=== PATIENT | female | born 2005 | race Hispanic/Latino ===

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

== ENCOUNTER 2025-04-05 21:16 | Emergency (ER) | payer SELFPAY ==
[~2025-04-05] VITALS: Ht 157.5 cm; Wt 77.1 kg
--- NOTE | 2025-04-05 21:19 | NUR ---
UA CUP PROVIDED
[2025-04-05] MEDS ORDERED: ALBUTEROL 0.042% 1.25MG/3ML IH ONE (21:30)
[2025-04-05] MEDS: MAGNESIUM 2GM PREMIX 50ML 50 ML IV SCH (21:45)
[2025-04-05 22:00] VITALS: PULSE 87; RESP 20
[2025-04-05 22:13] LABS: IMMATURE GRANULOCYTE ABSOLUTE 0.02 K/uL (0-1); NUCLEATED RED BLOOD CELLS 0.0 % (0.0-0.19); PLATELET COUNT (AUTO) 292 K/uL (130-400); RED BLOOD CELL COUNT(AUTO) 3.99 MIL/uL (4.00-5.50); RED CELL DISTRIBUTION WIDTH 12.8 % (11.0-15.5); WHITE BLOOD COUNT (AUTO) 5.0 K/uL (4.8-10.8)
[2025-04-05 22:17] LABS: RAPID GROUP A STREP negative (NEGATIVE)
[2025-04-05 22:21] LABS: SARS-CoV-2, RNA, NAAT NEGATIVE SARS CoV-2 (NEGATIVE)
[2025-04-05 22:27] LABS: INFLUENZA TYPE A Negative For Type A (NEGATIVE); INFLUENZA TYPE B Negative For Type B (NEGATIVE)
[2025-04-05 22:36] LABS: CREATININE 0.6 mg/dL (0.5-1.0); GLOMERULAR FILTR. RATE CALC 133.0 mL/min (>90); GLUCOSE,RANDOM 96.0 mg/dL (70-105); SODIUM SERUM 140.0 mmol/L (136-145); UREA NITROGEN, BLOOD 8.0 mg/dL (7-18)
[2025-04-05] MEDS ORDERED: SODI3VIA16 IH (22:47)
[2025-04-05] MEDS ORDERED: BENZ-39 PO (22:47)
[2025-04-05] MEDS ORDERED: GUAI120015 PO (22:47)
--- NOTE | 2025-04-05 22:49 | ERN ---
General Chief Complaint: Adult-Asthma Stated Complaint: COUGH, VOMITING Time Seen by MD: 21:24 History of Present Illness Initial Comments 19-year-old female history of asthma here for evaluation of cough and congestion. Patient states that she has been using her rescue inhaler at home with minimal relief of symptoms. She comes today because of worsening cough and congestion. No fever. No vomiting or diarrhea. No abdominal pain. Allergies: Coded Allergies: No Known Drug Allergies (Unverified Allergy, Unknown, 05/25/19) Past Medical History Past Medical History: Asthma Past Surgical History: None EENTM: (+) nose congestion Respiratory: (+) cough Review of Systems: was completed, & the rest were negative. Physical Exam General Appearance: (+) no apparent distress Orientation: (+) alert, (+) oriented x 3 Eye: bilateral eye normal inspection, bilateral eye PERRL, bilateral eye EOMI Ear, Nose, Throat: (+) hearing grossly normal, (+) normal ENT inspection, (+) moist mucous membraine Neck: (+) normal inspection, (+) supple Respiratory: (+) chest non-tender, (+) wheezing Heart: (+) regular; (-) murmur Gastrointestinal: (+) soft, (+) non-tender Neurologic/Psychiatric: (+) normal speech, (+) no motor defecits Results Laboratory and Microbiology Lab and Micro Result Laboratory Tests Test 04/05/25 21:21 04/05/25 21:34 04/05/25 21:35 Urine HCG, Qualitative NEGATIVE (NEGATIVE) White Blood Count 5.0 K/uL (4.8-10.8) Red Blood Count 3.99 MIL/uL (4.00-5.50) L Hemoglobin 11.0 g/dL (12.0-16.0) L Hematocrit 33.2 % (36-48) L Mean Corpuscular Volume 83.2 fL (80-100) Mean Corpuscular Hemoglobin 27.6 pg (27.0-33.0) Mean Corpuscular Hemoglobin Concent 33.1 g/dL (32.0-36.0) Red Cell Distribution Width 12.8 % (11.0-15.5) Platelet Count 292 K/uL (130-400) Mean Platelet Volume 9.1 fL (7.5-10.5) Immature Granulocyte % (Auto) 0.4 % (0-1) Neutrophils (%) (Auto) 41.7 % (40.0-77.0) Lymphocytes (%) (Auto) 42.5 % (21.0-51.0) Monocytes (%) (Auto) 10.4 % (3.0-13.0) Eosinophils (%) (Auto) 4.6 % (0.0-8.0) Basophils (%) (Auto) 0.4 % (0.0-5.0) Neutrophils # (Auto) 2.1 K/uL (1.8-7.7) Lymphocytes # (Auto) 2.1 K/uL (1.0-4.8) Monocytes # (Auto) 0.5 K/uL (0.1-1.0) Eosinophils # (Auto) 0.23 K/uL (0.00-0.70) Basophils # (Auto) 0.02 K/uL (0.00-0.20) Absolute Immature Granulocyte (auto 0.02 K/uL (0-1) Nucleated Red Blood Cells 0.0 % (0.0-0.19) Sodium Level 140 mmol/L (136-145) Potassium Level 3.2 mmol/L (3.5-5.1) L Chloride Level 103 mmol/L (101-111) Carbon Dioxide Level 25 mmol/L (21-32) Blood Urea Nitrogen 8 mg/dL (7-18) Creatinine 0.6 mg/dL (0.5-1.0) Glomerular Filtration Rate Calc 133 mL/min (>90) Random Glucose 96 mg/dL (70-105) Lactic Acid Level 1.7 mmol/L (0.8-2.5) Total Calcium 8.6 mg/dL (8.5-10.1) Magnesium Level 1.80 mg/dL (1.80-2.40) Influenza Type A Antigen Negative For Type A Influenza Type B Antigen Negative For Type B SARS-CoV-2, RNA, NAAT NEGATIVE SARS CoV-2 Group A Streptococcus Rapid negative (NEGATIVE) MDM 19-year-old female here for evaluation of cough congestion. Mild wheezes on examination. We will give her a neb treatment, magnesium and reassess. Likely discharge home. ED Course Orders Procedure Category Date Status Time ,Urine Test LAB 04/05/25 Complete 21:22 Covid Rna Naat LAB 04/05/25 Complete 21:24 Influenza Type A & B, LAB 04/05/25 Complete Rapid 21:24 Rapid (Group A Strep) LAB 04/05/25 Complete 21:24 Magnesium LAB 04/05/25 Complete 21:24 Lactic Acid LAB 04/05/25 Complete 21:24 Cbc With Differential LAB 04/05/25 Complete 21:24 Basic Metabolic Panel LAB 04/05/25 Complete 21:24 Chest 1vw RAD 04/05/25 Taken 21:24 Albuterol 0.042% PHA 04/05/25 Complete 1.25mg/3ml (Proventil 21:30 Magnesium 2gm Premix PHA 04/05/25 In Process 50ml (Magnesium 2gm 21:30 Albuterol 0.083% PHA 04/05/25 Complete 2.5mg/3ml (Proventil 21:53 Potassium Chloride PHA 04/05/25 Logged 20meq Er (K-Dur/Klor- 23:00 Current Medications Medications (Trade) Dose Ordered Sig/Krishna Route PRN Reason Start Time Stop Time Status Last Admin Dose Admin Albuterol Sulfate (Proventil 0.042% 1.25mg/ 3ml) 9 mg ONCE ONCE IH 04/05/25 21:30 04/05/25 21:32 DC Albuterol Sulfate (Proventil 0.083% 2.5mg/3ml) 2.5 mg STK-MED ONCE IH 04/05/25 21:53 04/05/25 21:54 DC Magnesium Sulfate 50 ml @ 0 mls/hr PROTOCOL IV 04/05/25 21:30 05/05/25 21:29 04/05/25 21:45 Potassium Chloride (K-Dur/Klor-Con 20meq) 40 meq ONCE ONCE PO 04/05/25 23:00 04/05/25 23:01 UNV Vital Signs Date Time Temp Pulse Resp B/P (MAP) Pulse Ox O2 Delivery O2 Flow Rate FiO2 04/05/25 22:00 87 20 04/05/25 21:38 99.7 94 18 113/72 97 Room Air* 0 21 04/05/25 21:17 98.1 99 24 128/78 98 Room Air DX & DISP Disposition: Discharge Departure Impression: Primary Impression: Asthma exacerbation Additional Impression: URI (upper respiratory infection) Condition: Stable Scripts Benzonatate (Tessalon Perles) 100 Mg Cap 1 CAP PO TID for cough for 10 Days, #30 CAP 0 Refills Prov: FILIBERTO BRITO MD 04/05/25 Guaifenesin (Mucinex) 1,200 Mg Tbmp.12hr 1 TAB PO BID for cough for 10 Days, #20 TAB 0 Refills Prov: FILIBERTO BRITO MD 04/05/25 Sodium Chloride For Inhalation (Sodium Chloride) 0.9 % Vial.neb 1 VIAL IH Q6H for 30 Days, #600 ML 0 Refills Prov: FILIBERTO BRITO MD 04/05/25 Referrals: TRENA MIGUEL MD (PCP) FILIBERTO BRITO MD Apr 05, 2025 22:49
[2025-04-05] MEDS: ALBUTEROL 0.083% 2.5 MG/3 ML INH IH ONE ×2 (23:02→23:03)
[2025-04-05] MEDS: PoTASSium chloRIDE 20MEQ ER 20 MEQ ERTAB PO ONE (23:04)
--- NOTE | 2025-04-05 23:47 | HMCIMG ---
EXAM: CR Chest, 1 view CLINICAL HISTORY: Shortness of breath. Asthma. COMPARISON: None provided. FINDINGS: The lungs show no infiltrates or other acute findings. No pleural effusion or pneumothorax. The cardiomediastinal silhouette is within normal limits. No acute osseous abnormality. IMPRESSION: No acute cardiopulmonary process is evident. /[place]
[2025-04-05 23:51] VITALS: BP 123/62; PULSE 73; RESP 18; TEMP 98.8; O2SAT 99
== END 2025-04-05 23:52 | disposition home or self-care (01) ==
LOC: EDH 21:16
DX: J06.9 Acute upper respiratory infection, unspecified (principal); J45.901 Unspecified asthma with (acute) exacerbation; Z20.822 Contact with and (suspected) exposure to COVID-19
CPT/HCPCS: 99284; 96365; 71045; 87635; 83735; 80048; 85025; 87880; 87804 ×2; 82948; 83605; 81025; 36415; 94640; J3475